=== PATIENT | female | born 2000 | race Caucasian/White ===

== ENCOUNTER 2022-01-17 19:24 | Emergency (ER) | payer OTHER ==
[~2022-01-17] VITALS: Ht 177.8 cm; Wt 77.3 kg
[2022-01-17 19:25] VITALS: TEMP 98
[2022-01-17 21:26] VITALS: BP 118/81; PULSE 81
== END 2022-01-17 21:30 | disposition home or self-care (01) ==
LOC: COL.ER 19:24
DX: S01.511A Laceration without foreign body of lip, initial encounter (principal); S16.1XXA Strain of muscle, fascia and tendon at neck level, initial encounter; Z28.310 Unvaccinated for COVID-19; V89.2XXA Person injured in unspecified motor-vehicle accident, traffic, initial encounter; Y92.410 Unspecified street and highway as the place of occurrence of the external cause